=== PATIENT | female | born 1960 | race Caucasian/White ===

== ENCOUNTER 2020-03-05 11:35 | Emergency (ER) | payer MEDICARE, OTHER ==
[~2020-03-05] VITALS: Ht 162.6 cm; Wt 59.0 kg
[~2020-03-05 11:35] MED LIST: CYCL10TA9; NEFA200T; TOPI15CA PO
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
[2020-03-05 13:32] VITALS: BP 128/81
--- NOTE | 2020-03-05 13:33 | NUR ---
Patient discharged to home in stable condition. Written and verbal after care instructions given. Patient verbalizes understanding of instruction.
== END 2020-03-05 13:33 | disposition home or self-care (01) ==
LOC: ER 11:38
DX: S10.93XA Contusion of unspecified part of neck, initial encounter (principal); S20.312A Abrasion of left front wall of thorax, initial encounter; S39.91XA Unspecified injury of abdomen, initial encounter; Z88.8 Allergy status to other drugs, medicaments and biological substances; Z60.2 Problems related to living alone; Z79.899 Other long term (current) drug therapy; V49.49XA Driver injured in collision with other motor vehicles in traffic accident, initial encounter; Y93.89 Activity, other specified; Y92.488 Other paved roadways as the place of occurrence of the external cause; Y99.8 Other external cause status
CPT/HCPCS: 71250-TC; 93880-TC